=== PATIENT | female | born 1965 | race Two or more races ===

== ENCOUNTER 2024-04-17 15:11 | Inpatient (IN) | payer BC, OTHER ==
[~2024-04-17] VITALS: Ht 160 cm; Wt 75.0 kg
[2024-04-17 15:46] LABS: Urine Bacteria None Seen /hpf (None Seen)
[2024-04-17 15:57] LABS: Hematocrit 42.1 % (36.0-46.0); Hemoglobin 14.2 g/dL (12.2-16.2); Mean Corpuscular Hemoglobin 31.2 pg (28.0-32.0); Mean Corpuscular Hgb Conc. 33.8 g/dL (32.0-36.0); Mean Corpuscular Volume 92.3 fL (80.0-100.0); Platelet Count (auto) 268 10^3/uL (140-450); Red Blood Cells 4.56 10^6/uL (4.0-5.20); Red Cell Distribution Width 14.1 % (11.8-14.3)
[2024-04-17 16:10] LABS: Alanine Aminotransferase 27 U/L (7-40); Albumin 4.9 g/dL (3.2-4.8); Alkaline Phosphatase 84 U/L (46-116); Anion Gap 8 (5-15); Aspartate Aminotransferase 23 U/L (13-40); BUN/Creatinine Ratio 12.3 (10.0-20.0); Bilirubin, Total 1.9 mg/dL (0.2-1.0); Blood Urea Nitrogen 9 mg/dL (9-23); Calcium 10.3 mg/dL (8.7-10.4); Carbon Dioxide 25 mmol/L (20-31); Chloride 103 mmol/L (98-107); Glucose 160 mg/dL (74-106); Potassium 3.6 mmol/L (3.5-5.1); Sodium 136 mmol/L (136-145); Total Protein 7.8 g/dL (5.7-8.2)
[2024-04-17] MEDS: SODIUM CHLORIDE 0.9% 500 ML IV ONE (16:17)
[2024-04-17 16:20] LABS: INR 1.04 (0.9-1.15); Partial Thromboplastin Time 29.6 SEC (24.5-34.5)
[2024-04-17 16:21] LABS: Basophils % (manual) 0 (0.0-2.0); Blast Cells 0; Eosinophils % (manual) 0 (0-7); Metamyelocytes % 0; Myelocytes % 0; Promyelocytes % 0; Reactive Lymphocytes 0
[2024-04-17] MEDS: ACETAMINOPHEN 325 MG TAB PO ONE ×2 (16:23→20:33)
[2024-04-17 16:38] LABS: Urine Blood Negative /uL (Negative); Urine Clarity Clear (Clear); Urine Color Light-Yellow (Yellow); Urine Mucus FEW (None Seen); Urine Protein, UAD Negative (Negative); Urine Specific Gravity 1.019 (1.001-1.035); Urine Urobilinogen Normal (Negative); Urine WBC 1 /hpf (0 - 5); Urine pH 5.5 (5.0-9.0)
[2024-04-17 16:42] LABS: Lactic Acid w/Reflex 2.6 mmol/L (0.4-2.0)
[2024-04-17] MEDS: SODIUM CHLORIDE 0.9% 1,550 ML IV ONE (16:45)
[2024-04-17 17:27] VITALS: BP 104/61; PULSE 111; RESP 18; TEMP 100.8; O2SAT 91
[2024-04-17 17:34] LABS: Band Neutrophils % (manual) 3; Lymphocytes % (manual) 6 (10.0-50.0); Monocytes % (manual) 3 (0-12)
[2024-04-17 17:35] LABS: Platelet Estimate Adequate; RBC Morphology Normal
[2024-04-17 18:00] VITALS: PULSE 111; RESP 20; O2SAT 91
[2024-04-17] MEDS: cefTRIAXone 1GM/50ML D5W 50 ML IV ONE (18:05)
[2024-04-17 19:30] VITALS: PULSE 101; RESP 18; O2SAT 94
[2024-04-17] MEDS: VANCOMYCIN 1GM/200ML PREMIX 200 ML IV ONE (20:38)
[2024-04-17] MEDS ORDERED: ACETAMINOPHEN 325 MG TAB PO PRN (22:00)
[2024-04-17] MEDS ORDERED: HYDROcodone-ACET 5/325MG TAB PO PRN (22:00)
[2024-04-17] MEDS ORDERED: MORPHINE SULFATE INJ 2 MG/ml SYRG IV PRN (22:00)
[2024-04-17] MEDS ORDERED: NITROGLYCERIN 0.4 MG SL TAB SL PRN (22:00)
[2024-04-17] MEDS ORDERED: ONDANSETRON HCL 4 MG/2 ML VIAL IV PRN (22:00)
[2024-04-17 22:45] LABS: Amphetamine Screen, Urine Neg (NEGATIVE); Barbiturate Scree,Urine Neg (NEGATIVE); Benzodiazephine Screen, Urine Neg (NEGATIVE); Cannabinoid Screen, Urine Neg (NEGATIVE); Cocaine Screen, Urine Neg (NEGATIVE); Opiate Scree,Urine Neg (NEGATIVE); Phencyclidine Screen, Urine Neg (NEGATIVE)
[2024-04-17] MEDS: SODIUM CHLORIDE 0.9% 1,000 ML IV SCH (23:21)
[2024-04-17] MEDS: metroNIDAZOLE 500MG/100ML 100 ML IV SCH (23:21)
[2024-04-18] MEDS ORDERED: DEXTROSE (50%) 50ML SYRG IV PRN (01:15)
[2024-04-18 03:52] LABS: Basophils # (auto) 0 10 ^3/uL (0-0.2); Basophils % (auto) 0.2 % (0.0-2.0); Eosinophils # (auto) 0.2 10 ^3/uL (0-0.8); Eosinophils % (auto) 2.5 % (0.0-7.0); Hematocrit 35.6 % (36.0-46.0); Hemoglobin 12.1 g/dL (12.2-16.2); Lymphocytes # (auto) 0.7 10 ^3/uL (0.4-5.4); Lymphocytes % (auto) 9.9 % (10.0-50.0); Mean Corpuscular Hemoglobin 31.2 pg (28.0-32.0); Mean Corpuscular Volume 91.7 fL (80.0-100.0); Monocytes # (auto) 0.5 10 ^3/uL (0-1.3); Monocytes % (auto) 7.4 % (0.0-12.0); Neutrophils # (auto) 5.6 10 ^3/uL (1.6-8.6); Nucleated Red Blood Cells % 0.1 %; Platelet Count (auto) 211 10^3/uL (140-450); Red Blood Cells 3.89 10^6/uL (4.0-5.20); Red Cell Distribution Width 14.2 % (11.8-14.3)
[2024-04-18] MEDS: IBUPROFEN 600 MG TAB PO ONE (04:04)
[2024-04-18 04:10] LABS: Alanine Aminotransferase 21 U/L (7-40); Albumin 4.2 g/dL (3.2-4.8); Alkaline Phosphatase 65 U/L (46-116); Anion Gap 5 (5-15); Aspartate Aminotransferase 16 U/L (13-40); BUN/Creatinine Ratio 14.1 (10.0-20.0); Bilirubin, Total 1.8 mg/dL (0.2-1.0); Blood Urea Nitrogen 9 mg/dL (9-23); Carbon Dioxide 26 mmol/L (20-31); Chloride 109 mmol/L (98-107); Glucose 150 mg/dL (74-106); Potassium 3.5 mmol/L (3.5-5.1); Sodium 140 mmol/L (136-145); Total Protein 6.6 g/dL (5.7-8.2)
[2024-04-18] MEDS: ACCU-CHEK COMFORT CURVE STRIP VI SCH (06:03)
[2024-04-18] MEDS: InsuLIN REG 1unit/0.01ml Soln (100units/ml) SC SCH (06:03)
[2024-04-18 09:21] VITALS: PULSE 98; RESP 16; O2SAT 95
[2024-04-18 10:54] VITALS: O2SAT 96
[2024-04-18] MEDS: ENOXAPARIN SOD 40 MG/0.4 ML SYRINGE SC SCH (11:41)
[2024-04-18] MEDS: PANTOPRAZOLE 40 MG TAB PO SCH (11:41)
[2024-04-18 13:00] VITALS: BP 93/51; PULSE 68; RESP 17; TEMP 98; O2SAT 95
[2024-04-18 16:56] VITALS: BP 124/61; PULSE 79; RESP 18; TEMP 98.7; O2SAT 97
[2024-04-18] MEDS: ACETAMINOPHEN 325 MG TAB PO PRN (19:43)
[2024-04-18 20:00] VITALS: PULSE 94; RESP 20; O2SAT 94
[2024-04-18 21:00] VITALS: BP 115/63; PULSE 94; RESP 20; TEMP 99.4; O2SAT 94
[2024-04-18] MEDS: cefTRIAXone 1GM/50ML D5W 50 ML IV SCH (21:10)
[2024-04-19] VITALS (8 sets, daily range): BP systolic 96–112; BP diastolic 51–63; PULSE 70–94; RESP 16–20; TEMP 97.9–98.6; O2SAT 94–98
[2024-04-19 00:05] LABS: COVID19 ANTIGEN SOFIA FIA NEGATIVE (NEGATIVE)
[2024-04-19 06:27] LABS: Anion Gap 7 (5-15); Calcium 8.6 mg/dL (8.7-10.4); Carbon Dioxide 24 mmol/L (20-31); Chloride 107 mmol/L (98-107); Potassium 4.1 mmol/L (3.5-5.1); Sodium 138 mmol/L (136-145)
[2024-04-19 06:33] LABS: BUN/Creatinine Ratio 32.4 (10.0-20.0); Blood Urea Nitrogen 22 mg/dL (9-23); Glucose 142 mg/dL (74-106)
[2024-04-19 06:34] LABS: Magnesium 2.3 mg/dL (1.6-2.6)
[2024-04-19 12:29] LABS: Basophils # (auto) 0 10 ^3/uL (0-0.2); Basophils % (auto) 0.2 % (0.0-2.0); Eosinophils # (auto) 0.2 10 ^3/uL (0-0.8); Eosinophils % (auto) 3.4 % (0.0-7.0); Hematocrit 35.2 % (36.0-46.0); Hemoglobin 11.7 g/dL (12.2-16.2); Lymphocytes # (auto) 1.3 10 ^3/uL (0.4-5.4); Lymphocytes % (auto) 20.2 % (10.0-50.0); Mean Corpuscular Hemoglobin 30.9 pg (28.0-32.0); Mean Corpuscular Hgb Conc. 33.3 g/dL (32.0-36.0); Mean Corpuscular Volume 92.6 fL (80.0-100.0); Monocytes # (auto) 0.7 10 ^3/uL (0-1.3); Monocytes % (auto) 10.1 % (0.0-12.0); Neutrophils # (auto) 4.4 10 ^3/uL (1.6-8.6); Neutrophils % (auto) 66.1 % (37.0-80.0); Nucleated Red Blood Cells % 0.1 %; Platelet Count (auto) 211 10^3/uL (140-450); Red Cell Distribution Width 13.7 % (11.8-14.3); White Blood Cell 6.6 10^3/uL (4.4-10.8)
[2024-04-19 13:09] LABS: Chloride 109 mmol/L (98-107); Potassium 3.6 mmol/L (3.5-5.1); Sodium 141 mmol/L (136-145)
[2024-04-19 13:10] LABS: Anion Gap 5 (5-15); Calcium 9.1 mg/dL (8.7-10.4); Carbon Dioxide 27 mmol/L (20-31)
[2024-04-19 13:15] LABS: BUN/Creatinine Ratio 11.1 (10.0-20.0); Glucose 121 mg/dL (74-106); Magnesium 2.2 mg/dL (1.6-2.6)
[2024-04-19 13:49] LABS: Blood Urea Nitrogen 6 mg/dL (9-23)
[2024-04-20 01:00] VITALS: BP 116/63; PULSE 72; RESP 18; TEMP 98.3; O2SAT 96
[2024-04-20 05:00] VITALS: BP 109/53; PULSE 76; RESP 18; TEMP 98.3; O2SAT 97
[2024-04-20 06:21] LABS: Basophils # (auto) 0 10 ^3/uL (0-0.2); Basophils % (auto) 0.3 % (0.0-2.0); Eosinophils # (auto) 0.3 10 ^3/uL (0-0.8); Eosinophils % (auto) 4.8 % (0.0-7.0); Hematocrit 33.1 % (36.0-46.0); Hemoglobin 11.5 g/dL (12.2-16.2); Lymphocytes # (auto) 1.5 10 ^3/uL (0.4-5.4); Lymphocytes % (auto) 27.9 % (10.0-50.0); Mean Corpuscular Hgb Conc. 34.8 g/dL (32.0-36.0); Mean Corpuscular Volume 91.8 fL (80.0-100.0); Monocytes # (auto) 0.5 10 ^3/uL (0-1.3); Monocytes % (auto) 8.8 % (0.0-12.0); Neutrophils # (auto) 3.2 10 ^3/uL (1.6-8.6); Neutrophils % (auto) 58.2 % (37.0-80.0); Nucleated Red Blood Cells % 0.2 %; Platelet Count (auto) 197 10^3/uL (140-450); Red Cell Distribution Width 13.6 % (11.8-14.3); White Blood Cell 5.5 10^3/uL (4.4-10.8)
[2024-04-20 06:29] LABS: Anion Gap 5 (5-15); Carbon Dioxide 26 mmol/L (20-31); Chloride 109 mmol/L (98-107); Sodium 140 mmol/L (136-145)
[2024-04-20 06:31] LABS: Calcium 9.1 mg/dL (8.7-10.4)
[2024-04-20 06:35] LABS: Glucose 144 mg/dL (74-106)
[2024-04-20 06:36] LABS: BUN/Creatinine Ratio 8.9 (10.0-20.0); Blood Urea Nitrogen 5 mg/dL (9-23)
[2024-04-20 09:00] VITALS: BP 113/64; PULSE 74; RESP 20; TEMP 98.4; O2SAT 95
[2024-04-20] MEDS ORDERED: CIPR-173 PO (12:37)
[2024-04-20] MEDS ORDERED: METR-344 PO (12:37)
[2024-04-20 13:02] VITALS: TEMP 36.9
[2024-04-20 13:32] VITALS: BP 116/67; PULSE 78; RESP 18; TEMP 97.4; O2SAT 97
== END 2024-04-20 13:50 | disposition home or self-care (01) | DRG 872 ==
LOC: ER 15:11 → OVERFLOW 21:46 → CENTRAL 04-18 10:25
PROVIDERS: ADMIT Internal Medicine; ATTEND Internal Medicine
DX: A41.9 Sepsis, unspecified organism (principal); E11.9 Type 2 diabetes mellitus without complications; E78.5 Hyperlipidemia, unspecified; I10 Essential (primary) hypertension; K52.9 Noninfective gastroenteritis and colitis, unspecified; K21.9 Gastro-esophageal reflux disease without esophagitis; Z79.4 Long term (current) use of insulin; Z79.899 Other long term (current) drug therapy
CPT/HCPCS: 36415; 71046; 74176; 80048; 80053; 80307; 81001; 82306; 82607; 82962; 83036; 83605; 83735; 84443; 84484; 85007; 85025; 85027; 85379; 85610; 85730; 87040; 87426; 93005; 93970; 99291; G0378; J1815; J3490